=== PATIENT | male | born 1960 | race African-American/Black ===

== ENCOUNTER 2021-01-31 12:51 | Outpatient (CLI) | payer OTHER ==
[2021-02-01 00:09] LABS: SARS-CoV-2 PCR by NAA Not Detected (NotDetected)
== END 2021-01-31 12:52 | disposition home or self-care (01) ==
LOC: CSHLAB 12:51
PROVIDERS: ATTEND Internal Medicine Gastroenterology
DX: Z01.812 Encounter for preprocedural laboratory examination (principal); Z20.822 Contact with and (suspected) exposure to COVID-19
CPT/HCPCS: U0003; U0005

== ENCOUNTER 2021-02-03 07:21 | Day surgery (SDC) | payer OTHER ==
[2021-02-01 14:29] VITALS: BMI 25.9
[2021-02-03] MEDS ORDERED: Lidocaine 1% MPF 2 ML VIAL ONE (08:55)
[2021-02-03] MEDS ORDERED: Lidocaine 1% PF 5 ML VIAL ONE (09:56)
[2021-02-03] MEDS ORDERED: PROPOFOL 20 ML ONE ×2 (09:56)
== END 2021-02-03 11:20 | disposition home or self-care (01) ==
LOC: CSHSDC 07:21
PROVIDERS: ATTEND Internal Medicine Gastroenterology
PROC: 0DBN8ZZ Excision of Sigmoid Colon, Via Natural or Artificial Opening Endoscopic (ICD-10-PCS; principal; 2021-02-03)
DX: Z12.11 Encounter for screening for malignant neoplasm of colon (principal); K63.5 Polyp of colon; K64.9 Unspecified hemorrhoids; I10 Essential (primary) hypertension; E78.5 Hyperlipidemia, unspecified; D64.9 Anemia, unspecified; F17.210 Nicotine dependence, cigarettes, uncomplicated
CPT/HCPCS: 88305; J2704

== ENCOUNTER 2021-04-04 12:36 | Outpatient (CLI) | payer OTHER, BC ==
[2021-04-05 11:36] LABS: SARS-CoV-2 PCR by NAA Not Detected (NotDetected)
== END 2021-04-04 12:37 | disposition home or self-care (01) ==
LOC: CSHLAB 12:36
PROVIDERS: ATTEND Internal Medicine Pulmonary Disease
DX: Z20.822 Contact with and (suspected) exposure to COVID-19 (principal)
CPT/HCPCS: U0003; U0005

== ENCOUNTER 2021-04-15 12:34 | Outpatient (CLI) | payer BC ==
[2021-04-16 12:54] LABS: SARS-CoV-2 PCR by NAA Not Detected (NotDetected)
== END 2021-04-15 12:35 | disposition home or self-care (01) ==
LOC: CSHLAB 12:34
PROVIDERS: ATTEND Internal Medicine Pulmonary Disease
DX: Z20.822 Contact with and (suspected) exposure to COVID-19 (principal)
CPT/HCPCS: U0003; U0005

== ENCOUNTER 2021-04-20 13:14 | Outpatient (CLI) | payer BC, OTHER | END 2021-04-20 13:15 | disposition home or self-care (01) | LOC: CSHCT 13:14 | PROVIDERS: ATTEND Internal Medicine Pulmonary Disease | DX: Z12.2 Encounter for screening for malignant neoplasm of respiratory organs (principal); F17.210 Nicotine dependence, cigarettes, uncomplicated; R06.02 Shortness of breath | CPT/HCPCS: 71271; 93306; 94060; 94726; 94729; 94760 ==